=== PATIENT | male | born 1965 | race Caucasian/White ===

== ENCOUNTER 2018-07-04 01:44 | Emergency (ER) | payer BC ==
[2018-07-04 02:04] VITALS: BP 138/89; PULSE 96; RESP 16; TEMP 97.8; O2SAT 96
[2018-07-04] MEDS ORDERED: Albuterol 0.083% Inhal Sol (2.5 mg/3 mL) UD INH ONE (02:10)
[2018-07-04] MEDS ORDERED: Albuterol 0.083% Inhal Sol (2.5 mg/3 mL) UD ONE (02:42)
--- NOTE | 2018-07-04 03:02 | ED PDOC ---
HPI: Influenza Time Seen by Provider: 07/04/18 01:56 Chief Complaint: Cough, Cold, Congestion Chief Complaint (Provider): Cough, cold, congestion History Per: Patient Exam Limitations: no limitations Onset/Duration Of Symptoms: Days (x1) Symptoms include: fever, sore throat, cough, nasal congestion Additional complaint(s):: 53 year old male, with a history of high blood pressure and carotid stenosis on plavix, presents with nasal congestion, sore throat, and runny nose for 1 day. Patient reports a fever in the morning and took Tylenol. He states his throat is tight and has difficulty breathing. Patient also states cough is nonproductive. Denies recent travel or sick contacts. PMD: none Past Medical History Reviewed: Historical Data, Nursing Documentation, Vital Signs Vital Signs: Last Vital Signs Temp 97.8 F 07/04/18 02:00 Pulse 96 H 07/04/18 02:00 Resp 16 07/04/18 02:00 BP 138/89 07/04/18 02:00 Pulse Ox 96 07/04/18 02:00 - Medical History PMH: HTN Other PMH: carotid stenosis - Surgical History Surgical History: No Surg Hx - Family History Family History: States: Unknown Family Hx - Home Medications Home Medications: Ambulatory Orders Medication Instructions Recorded Albuterol HFA [Ventolin HFA 90 2 puff IH [id number] #1 puff 07/04/18 mcg/actuation (8 g)] Ibuprofen [Motrin Tab] 600 mg PO Q6 #30 tab 07/04/18 Oseltamivir Phosphate [Tamiflu] 75 mg PO BID 5 Days #10 capsule 07/04/18 - Allergies Allergies/Adverse Reactions: Allergies Allergy/AdvReac Type Severity Reaction Status Date / Time quinine Allergy ITCHING Verified 07/04/18 02:00 Review of Systems ROS Statement: Except As Marked, All Systems Reviewed And Found Negative Constitutional: Positive for: Fever ENT: Positive for: Nose Discharge (Runny nose), Nose Congestion, Throat Pain Respiratory: Positive for: Cough (nonproductive), Shortness of Breath (Difficulty breathing due to tight throat) Physical Exam - Reviewed Nursing Documentation Reviewed: Yes Vital Signs Reviewed: Yes - Physical Exam Appears: Positive for: Well Head Exam: Positive for: ATRAUMATIC, NORMOCEPHALIC Skin: Positive for: Normal Color, Warm, Dry ENT: Positive for: Nasal Congestion Neck: Positive for: Normal, Painless ROM Cardiovascular/Chest: Positive for: Regular Rate, Rhythm Respiratory: Positive for: Rhonchi (scattered ronchi, worse on the left than the right) Extremity: Positive for: Normal ROM Neurologic/Psych: Positive for: Alert, Oriented. Negative for: Motor/Sensory Deficits Medical Decision Making Medical Decision Making: A/P: Well appearing 53 y/o male presenting with influenza like symptoms. Well appearing patient with no distress noted. Differential includes upper respiratory infection, influenza, less likely pneumonia. Initial Plan: --Chest X-ray --Albuterol 2.5mg INH --Motrin 600mg PO --Peak flow 345AM --Patient feeling much better --Will treat empiracally for the flu --Strongly advised followup in 2 - 3 days with PMD --Very well appearing upon discharge Scribe Attestation: Documented by Marlon Navas acting as a scribe for Yoni Johnston MD. Provider Scribe Attestation: All medical record entries made by the Scribe were at my direction and personally dictated by me. I have reviewed the chart and agree that the record accurately reflects my personal performance of the history, physical exam, medical decision making, and the department course for this patient. I have also personally directed, reviewed, and agree with the discharge instructions and disposition. - ECG O2 Sat by Pulse Oximetry: 96 Disposition - Clinical Impression Clinical Impression: Cough, Upper respiratory infection, Influenza-like illness - Disposition Referrals: [facility] [place] [Outside] Disposition: Routine/Home Disposition Time: 03:59 Condition: IMPROVED Prescriptions: Albuterol HFA [Ventolin HFA 90 mcg/actuation (8 g)] 2 puff IH [id number] #1 puff Ibuprofen [Motrin Tab] 600 mg PO Q6 #30 tab Oseltamivir Phosphate [Tamiflu] 75 mg PO BID 5 Days #10 capsule Instructions: Cough in Adults, Cough, Runny Nose, and the Common Cold (DC), Flu Forms: [employer] ([place]ican)
[2018-07-04] MEDS ORDERED: Albuterol-Ipratrop 3 mg / 0.5 (3 ml) UD ONE (03:03)
[2018-07-04] MEDS ORDERED: Albuterol-Ipratrop 3 mg / 0.5 (3 ml) UD INH STA (03:28)
--- NOTE | 2018-07-04 10:52 | RAD ---
Date of service: 07/04/2018 HISTORY: Cough, former smoker COMPARISON: No prior. TECHNIQUE: Chest PA and lateral FINDINGS: LINES AND TUBES: None. LUNG AND PLEURA: The lungs are hyperinflated and there is peribronchial thickening with chronic changes in both lungs. No pleural effusion or pneumothorax. HEART AND MEDIASTINUM: The heart is not enlarged. No aortic atherosclerotic calcification present. The hilar and mediastinal contours are within normal limits. SKELETAL STRUCTURES: The bony structures are within normal limits for the patient's age. VISUALIZED UPPER ABDOMEN: Normal. OTHER FINDINGS: None. IMPRESSION: No active pulmonary disease. COPD.
== END 2018-07-04 04:09 | disposition home or self-care (01) ==
LOC: H.ER 01:44
DX: R09.81 Nasal congestion (principal); R05 Cough; J06.9 Acute upper respiratory infection, unspecified; J11.1 Influenza due to unidentified influenza virus with other respiratory manifestations; J44.9 Chronic obstructive pulmonary disease, unspecified; Z87.891 Personal history of nicotine dependence; Z79.899 Other long term (current) drug therapy

== ENCOUNTER 2018-07-04 17:43 | Emergency (ER) | payer BC ==
[2018-07-04 17:55] VITALS: BP 152/87; PULSE 118; RESP 18; TEMP 98.2; O2SAT 99
== END 2018-07-04 19:05 | disposition left against medical advice (07) ==
LOC: H.ER 17:43
DX: Z02.89 Encounter for other administrative examinations (principal)